=== PATIENT | female | born 1945 | race Caucasian/White ===

== ENCOUNTER 2017-12-16 17:17 | Inpatient (IN) | payer MEDICARE, OTHER ==
[~2017-12-16] VITALS: Ht 154.9 cm; Wt 106.0 kg
[~2017-12-16 17:17] MED LIST: ACIPHEX; ALBU4; ALBU90OI6 INH; ALBUTEROL; AMLO5 PO; ASMONEX; ASTHMANEX; B12; B6; BENTYL20 MG PO; BENZ100A PO; C; CALCAVITD PO; CALPHO600 PO; CELE200 PO; CETI10; CETI10 PO; CIPR500 PO; CLON.5; CLON.5 PO; CLON1 PO; CONEST.625; DOXA; DOXA1 PO; DOXA4; DOXA4 PO; DULOXETINE HCL20 MG PO; ERGO50000 PO; ESCI10 PO; EZET10 PO; Enulose10 GM/15 M PO; FAMO20; FLAX; FLAX PO; FLUC200 PO; FOSI10; FOSINOPRIL; HYDHCL25 PO; HYOS0.375T; Halcion0.25 MG PO; LAVAP17G PO; LETR2.5 PO; LEVFLO500 PO; LEVO750 PO; LEVSOD75 PO; LISI20 PO; METF500 PO; METO10; METO10 PO; METO50ER PO; METR500 PO; MULVITMINF PO; NAPR500 PO; ONDA8ODT; OXYACE5T PO; OXYACE7.5T PO; PANT20; PANT40 PO; PREMARIN; PROACE100 PO; Percocet 5-3251 EACH PO; RABE20; ROPI.25 PO; RXHYDACE PO; RXOXYACE PO; SIMV5; SPIR25 PO; TELM40 PO; TELMISARTAN-AM1 EACH PO; TOCO1000 PO; TRIAZOLAM; TRIAZOLAM PO; ZOCOR; ZYRTEC; [UNRECOGNIZED DRUG - OTHER]; [UNRECOGNIZED DRUG - OTHER]; [UNRECOGNIZED DRUG - OTHER]; [UNRECOGNIZED DRUG - OTHER]; [UNRECOGNIZED DRUG - OTHER]; [UNRECOGNIZED DRUG - OTHER]; [UNRECOGNIZED DRUG - OTHER] PO
[2017-12-16 18:53] LABS: BASOPHILS ABSOLUTE AUTO 0.03 K/mm3 (0.00-0.23); BASOPHILS PERCENT AUTO 1 % (0-2); EOSINOPHILS ABSOLUTE AUTO 0.14 K/mm3 (0.00-0.68); EOSINOPHILS PERCENT AUTO 3 % (0-6); Hematocrit 36.8 % (33.0-51.0); Hemoglobin 12.2 g/dL (11.5-16.0); IMMATURE GRAN PERCENT AUTO 2 % (0-1); LYMPHOCYTES PERCENT AUTO 13 % (21-46); MONOCYTES ABSOLUTE AUTO 0.74 K/mm3 (0.16-1.47); MONOCYTES PERCENT AUTO 16 % (4-13); Mean Corpuscular HGB 28.6 pg (26.0-34.0); Mean Corpuscular HGB Conc 33.2 g/dL (31.5-36.5); Mean Corpuscular Volume 86 fL (80-100); Mean Platelet Volume 8.2 fL (9.1-12.4); NEUTROPHILS ABSOLUTE AUTO 3.16 K/mm3 (1.96-9.15); NEUTROPHILS PERCENT AUTO 66 % (41-73); Platelet Count 205 K/mm3 (150-400); RDW Coefficient Variation 13.3 % (11.7-14.2); RDW Standard Deviation 41.4 fL (35.1-46.3); Red Blood Cell Count 4.27 M/mm3 (3.80-5.20); White Blood Cell Count 4.77 K/mm3 (4.00-11.30)
[2017-12-16 19:24] LABS: Alanine Aminotransfer (ALT/SGP 20 U/L (12-78); Albumin, Blood 3.8 g/dL (3.4-5.0); Alk Phos 89 U/L (50-136); Anion Gap 5 mmol/L (6-16); Aspartate Aminotrans (AST/SGOT 15 U/L (12-37); Bilirubin, Total 0.5 mg/dL (0.1-1.0); Blood Urea Nitrogen 8 mg/dL (8-24); Bun/Creatinine Ratio 11.8 (12.0-20.0); CO2, Blood 30 mmol/L (21-32); Calcium, Blood 9.1 mg/dL (8.5-10.1); Chloride, Blood 90 mmol/L (98-108); Creatinine, Blood 0.68 mg/dL (0.40-1.00); Globulin, Blood 3.7 g/dL (2.2-4.0); Glomerular Filtration Rate >60 (60-); Glucose, Blood 131 mg/dL (70-99); Potassium, Blood 4.4 mmol/L (3.5-5.5); Sodium, Blood 125 mmol/L (136-145); Total Protein, Blood 7.5 g/dL (6.4-8.2)
[2017-12-16 19:26] LABS: Troponin I <0.015 ng/mL (0.000-0.040)
[2017-12-17] MEDS ORDERED: ERGO400 PO (00:42)
[2017-12-17] MEDS ORDERED: BUSP15 PO (00:46)
[2017-12-17] MEDS ORDERED: MONT10T PO (00:47)
[2017-12-17 01:28] LABS: Influenza A Negative (NEGATIVE); Influenza B Positive (NEGATIVE)
[2017-12-17 05:17] LABS: BASOPHILS ABSOLUTE AUTO 0.02 K/mm3 (0.00-0.23); BASOPHILS PERCENT AUTO 0 % (0-2); EOSINOPHILS PERCENT AUTO 0 % (0-6); Hematocrit 34.8 % (33.0-51.0); Hemoglobin 11.7 g/dL (11.5-16.0); IMMATURE GRAN ABSOLUTE AUTO 0.16 K/mm3 (0.00-0.10); IMMATURE GRAN PERCENT AUTO 3 % (0-1); LYMPHOCYTES ABSOLUTE AUTO 0.29 K/mm3 (0.84-5.20); LYMPHOCYTES PERCENT AUTO 6 % (21-46); MONOCYTES ABSOLUTE AUTO 0.08 K/mm3 (0.16-1.47); MONOCYTES PERCENT AUTO 2 % (4-13); Mean Corpuscular HGB 28.7 pg (26.0-34.0); Mean Corpuscular HGB Conc 33.6 g/dL (31.5-36.5); Mean Corpuscular Volume 85 fL (80-100); Mean Platelet Volume 8.4 fL (9.1-12.4); NEUTROPHILS ABSOLUTE AUTO 4.21 K/mm3 (1.96-9.15); NEUTROPHILS PERCENT AUTO 88 % (41-73); Platelet Count 222 K/mm3 (150-400); RDW Coefficient Variation 13.2 % (11.7-14.2); RDW Standard Deviation 40.8 fL (35.1-46.3); Red Blood Cell Count 4.08 M/mm3 (3.80-5.20); White Blood Cell Count 4.76 K/mm3 (4.00-11.30)
[2017-12-17 05:50] LABS: Alanine Aminotransfer (ALT/SGP 22 U/L (12-78); Albumin, Blood 3.4 g/dL (3.4-5.0); Albumin/Globulin Ratio 0.8 (0.8-1.8); Alk Phos 79 U/L (50-136); Anion Gap 15 mmol/L (6-16); Aspartate Aminotrans (AST/SGOT 13 U/L (12-37); Bilirubin, Total 0.3 mg/dL (0.1-1.0); Blood Urea Nitrogen 8 mg/dL (8-24); Bun/Creatinine Ratio 11.5 (12.0-20.0); CO2, Blood 23 mmol/L (21-32); Calcium, Blood 8.5 mg/dL (8.5-10.1); Chloride, Blood 88 mmol/L (98-108); Creatinine, Blood 0.69 mg/dL (0.40-1.00); Glomerular Filtration Rate >60 (60-); Glucose, Blood 234 mg/dL (70-99); Potassium, Blood 4.2 mmol/L (3.5-5.5); Sodium, Blood 126 mmol/L (136-145); Total Protein, Blood 7.4 g/dL (6.4-8.2)
[2017-12-18 05:33] LABS: BASOPHILS ABSOLUTE AUTO 0.01 K/mm3 (0.00-0.23); BASOPHILS PERCENT AUTO 0 % (0-2); EOSINOPHILS PERCENT AUTO 0 % (0-6); Hematocrit 35.1 % (33.0-51.0); Hemoglobin 11.7 g/dL (11.5-16.0); IMMATURE GRAN ABSOLUTE AUTO 0.09 K/mm3 (0.00-0.10); IMMATURE GRAN PERCENT AUTO 1 % (0-1); LYMPHOCYTES ABSOLUTE AUTO 0.35 K/mm3 (0.84-5.20); LYMPHOCYTES PERCENT AUTO 5 % (21-46); MONOCYTES ABSOLUTE AUTO 0.39 K/mm3 (0.16-1.47); MONOCYTES PERCENT AUTO 6 % (4-13); Mean Corpuscular HGB 28.5 pg (26.0-34.0); Mean Corpuscular HGB Conc 33.3 g/dL (31.5-36.5); Mean Corpuscular Volume 85 fL (80-100); Mean Platelet Volume 8.2 fL (9.1-12.4); NEUTROPHILS ABSOLUTE AUTO 5.87 K/mm3 (1.96-9.15); NEUTROPHILS PERCENT AUTO 88 % (41-73); Platelet Count 233 K/mm3 (150-400); RDW Standard Deviation 40.2 fL (35.1-46.3); Red Blood Cell Count 4.11 M/mm3 (3.80-5.20); White Blood Cell Count 6.71 K/mm3 (4.00-11.30)
[2017-12-18 05:56] LABS: Alanine Aminotransfer (ALT/SGP 24 U/L (12-78); Albumin, Blood 3.6 g/dL (3.4-5.0); Alk Phos 73 U/L (50-136); Anion Gap 9 mmol/L (6-16); Aspartate Aminotrans (AST/SGOT 30 U/L (12-37); Bilirubin, Total 0.2 mg/dL (0.1-1.0); Blood Urea Nitrogen 15 mg/dL (8-24); CO2, Blood 29 mmol/L (21-32); Calcium, Blood 8.8 mg/dL (8.5-10.1); Chloride, Blood 86 mmol/L (98-108); Globulin, Blood 3.7 g/dL (2.2-4.0); Glomerular Filtration Rate >60 (60-); Glucose, Blood 206 mg/dL (70-99); Potassium, Blood 4.6 mmol/L (3.5-5.5); Sodium, Blood 124 mmol/L (136-145); Total Protein, Blood 7.3 g/dL (6.4-8.2)
[2017-12-19 08:57] LABS: Anion Gap 8 mmol/L (6-16); Blood Urea Nitrogen 15 mg/dL (8-24); Bun/Creatinine Ratio 26.1 (12.0-20.0); CO2, Blood 28 mmol/L (21-32); Calcium, Blood 8.4 mg/dL (8.5-10.1); Chloride, Blood 86 mmol/L (98-108); Creatinine, Blood 0.58 mg/dL (0.40-1.00); Glomerular Filtration Rate >60 (60-); Glucose, Blood 174 mg/dL (70-99); Potassium, Blood 4.7 mmol/L (3.5-5.5); Sodium, Blood 122 mmol/L (136-145)
[2017-12-19] MEDS ORDERED: BENZ100A PO (10:56)
[2017-12-19] MEDS ORDERED: RA COUGH-COLD237 ML PO (11:00)
[2017-12-19] MEDS ORDERED: OSEL75CA PO (11:05)
[2017-12-19] MEDS ORDERED: SPIR25 PO (11:05)
[2017-12-19] MEDS ORDERED: PRED20 PO (11:08)
[2017-12-19] MEDS ORDERED: SODCHL1 PO (11:08)
[2017-12-19] MEDS ORDERED: LEVFLO500 PO (11:08)
== END 2017-12-19 11:54 | disposition home or self-care (01) | DRG 202 ==
LOC: ER 17:17 → MEDS 20:35
PROVIDERS: Emergency Medicine; Internal Medicine
DX: J45.901 Unspecified asthma with (acute) exacerbation (principal); J96.01 Acute respiratory failure with hypoxia; E87.1 Hypo-osmolality and hyponatremia; J11.1 Influenza due to unidentified influenza virus with other respiratory manifestations; E11.9 Type 2 diabetes mellitus without complications; I10 Essential (primary) hypertension; E03.9 Hypothyroidism, unspecified; K21.9 Gastro-esophageal reflux disease without esophagitis; F41.9 Anxiety disorder, unspecified; F32.9 Major depressive disorder, single episode, unspecified; E66.9 Obesity, unspecified; Z85.3 Personal history of malignant neoplasm of breast; Z79.84 Long term (current) use of oral hypoglycemic drugs; Z79.899 Other long term (current) drug therapy; Z91.048 Other nonmedicinal substance allergy status; Z88.5 Allergy status to narcotic agent; Z88.8 Allergy status to other drugs, medicaments and biological substances
CPT/HCPCS: 36415; 71046; 80048; 80053; 82947; 84484; 85025; 87070; 87205; 87804; 93005; 93010; 94640; 94644; 94760; 94762; 96374; 99285; J1650; J1956; J2920; J2930; J7030

== ENCOUNTER 2018-05-31 14:01 | Day surgery (SDC) | payer MEDICARE, OTHER ==
[~2018-05-31 14:01] MED LIST changes: +BUSP15 PO; +ERGO400 PO; +MONT10T PO; +OSEL75CA PO; +PRED20 PO; +RA COUGH-COLD237 ML PO; +SODCHL1 PO
== END 2018-05-31 22:45 | disposition home or self-care (01) ==
LOC: RAD 14:01
DX: M25.811 Other specified joint disorders, right shoulder (principal); M75.121 Complete rotator cuff tear or rupture of right shoulder, not specified as traumatic
CPT/HCPCS: 20610; 23350; 73201; 77002; Q9967

== ENCOUNTER 2019-07-15 11:27 | Day surgery (SDC) | payer MEDICARE, OTHER ==
[~2019-07-15] VITALS: Ht 185.4 cm; Wt 100.1 kg
[~2019-07-15 11:27] MED LIST changes: +ALBU90OI INH; +Advair Hfa 115-12 GM INH; +Cardura2 MG PO; +ELIQUIS5 MG PO; +ESCI20 PO; +Ferrous Sulfat325 M2 PO; +HYDPAM50 PO; +Lopressor 25 mg25 MG PO; +MAGNESIUM OXID500 MG PO; +Metformin HCl1000 MG PO; +Ropinirole HCl2 MG PO; +Singulair10 MG PO; +TORSE20 PO; +TRAZ50 PO; +ZYRTEC10 M1 PO
--- NOTE | 2019-07-15 13:10 | NUR ---
07/15/19 1310 Raven Castaneda 1 IVMISS IN RH BY FRANCISCO JAVIER VALVE 1 IV MISS IN RFA BY FRANCISCO JAVIER 1 GOOD IV IN RH BY FRANCISCO JAVIER PT TOW
--- NOTE | 2019-07-15 15:52 | NUR ---
07/15/19 1552 Sherie Ramachandran S IV SITE INFILTRATED IN RIGHT WRIST AREA JUST. OBSERVED THAT AN IV ATTEMPT WAS RIGHT ABOVE THE IV SITE IN WHAT IS OBSERVED TO BE IN THE SAME VEIN SO SITE WAS INFILTRATING IN ATTEMPT SITE. IV DISCONTINUED, PRESSURE HELD & IV RESTARTED IN RIGHT INNER FOREARM. ARM BOARD WAS ALSO PLACED TO HELP IV RUN BETTER. PT. DID WAKE UP VERBALIZING THAT HER OLD IV SITE WAS STARTING TO BECOME SORE. PT. INSTRUCTED THAT HER IV HAD INFILTRATED & ANOTHER ONE HAD BEEN STARTED. PT. WAS ALSO INSTRUCTED THAT IF SITE WAS BOTHERSOME THAT SHE COULD PUT A WARM PACK ON IT.
== END 2019-07-15 15:40 | disposition home or self-care (01) ==
LOC: ORSCSDS 11:27
PROVIDERS: Internal Medicine Gastroenterology
PROC: 0DJD8ZZ Inspection of Lower Intestinal Tract, Via Natural or Artificial Opening Endoscopic (ICD-10-PCS; principal; 2019-07-15 13:00)
PROC: 0DJ08ZZ Inspection of Upper Intestinal Tract, Via Natural or Artificial Opening Endoscopic (ICD-10-PCS; principal; 2019-07-15 13:00)
DX: D50.9 Iron deficiency anemia, unspecified (principal); K57.30 Diverticulosis of large intestine without perforation or abscess without bleeding; K64.8 Other hemorrhoids; Z86.010 Personal history of colon polyps; I10 Essential (primary) hypertension; E11.9 Type 2 diabetes mellitus without complications; K21.9 Gastro-esophageal reflux disease without esophagitis; I48.91 Unspecified atrial fibrillation; Z79.01 Long term (current) use of anticoagulants; E78.5 Hyperlipidemia, unspecified; J45.909 Unspecified asthma, uncomplicated; Z79.899 Other long term (current) drug therapy
CPT/HCPCS: 82947; J2001; J2250; J2704; J7120

== ENCOUNTER → 2020-03-15 | Outpatient (CLI) | payer MEDICARE, OTHER ==
[2020-03-15 14:02] LABS: BASOPHILS ABSOLUTE AUTO 0.05 K/mm3 (0.00-0.23); BASOPHILS PERCENT AUTO 1 % (0-2); EOSINOPHILS ABSOLUTE AUTO 0.24 K/mm3 (0.00-0.68); EOSINOPHILS PERCENT AUTO 4 % (0-6); Hematocrit 29.5 % (33.0-51.0); Hemoglobin 9.9 g/dL (11.5-16.0); IMMATURE GRAN ABSOLUTE AUTO 0.03 K/mm3 (0.00-0.10); IMMATURE GRAN PERCENT AUTO 1 % (0-1); LYMPHOCYTES ABSOLUTE AUTO 1.01 K/mm3 (0.84-5.20); LYMPHOCYTES PERCENT AUTO 16 % (21-46); MONOCYTES ABSOLUTE AUTO 0.64 K/mm3 (0.16-1.47); MONOCYTES PERCENT AUTO 10 % (4-13); Mean Corpuscular HGB 29.5 pg (26.0-34.0); Mean Corpuscular HGB Conc 33.6 g/dL (31.5-36.5); Mean Corpuscular Volume 88 fL (80-100); Mean Platelet Volume 8.3 fL (9.1-12.4); NEUTROPHILS ABSOLUTE AUTO 4.55 K/mm3 (1.96-9.15); NEUTROPHILS PERCENT AUTO 70 % (41-73); Platelet Count 203 K/mm3 (150-400); RDW Coefficient Variation 13.2 % (11.7-14.2); Red Blood Cell Count 3.36 M/mm3 (3.80-5.20); White Blood Cell Count 6.52 K/mm3 (4.00-11.30)
[2020-03-15 14:21] LABS: Alanine Aminotransfer (ALT/SGP 13 U/L (12-78); Albumin, Blood 3.8 g/dL (3.4-5.0); Albumin/Globulin Ratio 1.1 (0.8-1.8); Alk Phos 72 U/L (40-126); Anion Gap 3 mmol/L (6-16); Aspartate Aminotrans (AST/SGOT 12 U/L (12-37); Bilirubin, Total 0.4 mg/dL (0.1-1.0); Blood Urea Nitrogen 13 mg/dL (8-24); Bun/Creatinine Ratio 13.1 (12.0-20.0); CO2, Blood 38 mmol/L (21-32); Calcium, Blood 8.4 mg/dL (8.5-10.1); Chloride, Blood 85 mmol/L (98-108); Creatinine, Blood 0.99 mg/dL (0.40-1.00); Globulin, Blood 3.4 g/dL (2.2-4.0); Glomerular Filtration Rate 55 (60-); Glucose, Blood 118 mg/dL (70-99); Potassium, Blood 3.3 mmol/L (3.5-5.5); Sodium, Blood 126 mmol/L (136-145); Thyroid Stimulating Hormone 1.083 uIU/mL (0.360-4.800); Total Protein, Blood 7.2 g/dL (6.4-8.2); Troponin I <0.017 ng/mL (0.000-0.040)
== END | disposition home or self-care (01) ==
LOC: LAB SHORT 13:46 → LAB EV 13:46
PROVIDERS: Physician Assistant
DX: E03.9 Hypothyroidism, unspecified (principal); R06.00 Dyspnea, unspecified; Z20.828 Contact with and (suspected) exposure to other viral communicable diseases
CPT/HCPCS: 80053; 83880; 84443; 84484; 85025; U0003

== ENCOUNTER 2021-03-19 05:30 | Day surgery (SDC) | payer MEDICARE, OTHER ==
[~2021-03-19] VITALS: Ht 157.5 cm; Wt 93.0 kg
[2021-03-19] MEDS ORDERED: K-Dur 20 meq T20 MEQ PO (08:07)
--- NOTE | 2021-03-19 10:17 | NUR ---
11CC AIR REMOVED FROM R WRIST TR BAND. -BLEEDING OR SWELLING.
--- NOTE | 2021-03-19 10:18 | NUR ---
PT UP TO BATHROOM /S DIFFICULTY.
--- NOTE | 2021-03-19 11:14 | NUR ---
PT DRESSED, AMB TO BTR 3X SINCE CATH, TR BAND REMOVED, DRESSING/SPLINT TO R WRIST, IV DC'D INTACT. PT FAMILY CALLED AND WILL BE DC'D BY WC SHORTLY.
== END 2021-03-19 11:30 | disposition home or self-care (01) ==
LOC: MHTC 05:30
DX: I35.0 Nonrheumatic aortic (valve) stenosis (principal); I25.10 Atherosclerotic heart disease of native coronary artery without angina pectoris; I48.19 Other persistent atrial fibrillation; E11.9 Type 2 diabetes mellitus without complications; J45.909 Unspecified asthma, uncomplicated; E03.9 Hypothyroidism, unspecified; E66.01 Morbid (severe) obesity due to excess calories; E78.00 Pure hypercholesterolemia, unspecified; I11.0 Hypertensive heart disease with heart failure; I50.9 Heart failure, unspecified; Z88.5 Allergy status to narcotic agent; Z88.1 Allergy status to other antibiotic agents; Z88.0 Allergy status to penicillin; Z88.8 Allergy status to other drugs, medicaments and biological substances; Z79.01 Long term (current) use of anticoagulants; Z79.84 Long term (current) use of oral hypoglycemic drugs; Z68.37 Body mass index [BMI] 37.0-37.9, adult
CPT/HCPCS: 93454; 99152; C1769; C1894; J1644; J2250; J3010; J7030; Q9967

== ENCOUNTER 2021-06-02 09:08 | Emergency (ER) | payer MEDICARE, OTHER ==
[~2021-06-02] VITALS: Ht 157.5 cm; Wt 97.5 kg
[~2021-06-02 09:08] MED LIST changes: +POTCHL20ER PO
[2021-06-02] MEDS ORDERED: ELIQUIS5 M3 PO (09:27)
[2021-06-02] MEDS ORDERED: HYDROCODONE-AC1 EA14 PO (09:27)
[2021-06-02] MEDS ORDERED: PANTOPRAZOLE SO40 M2 PO (09:27)
[2021-06-02] MEDS ORDERED: TRAZ50 PO (09:29)
[2021-06-02] MEDS ORDERED: Cetirizine HCl10 MG PO (09:29)
[2021-06-02] MEDS ORDERED: METFORMIN HCL500 M2 PO (09:30)
[2021-06-02] MEDS ORDERED: DOXAZOSIN MESYLA4 M2 PO (09:31)
[2021-06-02] MEDS ORDERED: ALENDRONATE SOD35 MG PO (09:31)
[2021-06-02 09:50] LABS: BASOPHILS ABSOLUTE AUTO 0.04 K/mm3 (0.00-0.23); BASOPHILS PERCENT AUTO 1 % (0-2); EOSINOPHILS ABSOLUTE AUTO 0.23 K/mm3 (0.00-0.68); EOSINOPHILS PERCENT AUTO 5 % (0-6); Hematocrit 35.6 % (33.0-51.0); Hemoglobin 11.8 g/dL (11.5-16.0); IMMATURE GRAN ABSOLUTE AUTO 0.01 K/mm3 (0.00-0.10); IMMATURE GRAN PERCENT AUTO 0 % (0-1); LYMPHOCYTES ABSOLUTE AUTO 0.76 K/mm3 (0.84-5.20); LYMPHOCYTES PERCENT AUTO 16 % (21-46); MONOCYTES ABSOLUTE AUTO 0.57 K/mm3 (0.16-1.47); MONOCYTES PERCENT AUTO 12 % (4-13); Mean Corpuscular HGB 29.4 pg (26.0-34.0); Mean Corpuscular HGB Conc 33.1 g/dL (31.5-36.5); Mean Corpuscular Volume 89 fL (80-100); Mean Platelet Volume 8.9 fL (9.1-12.4); NEUTROPHILS ABSOLUTE AUTO 3.16 K/mm3 (1.96-9.15); NEUTROPHILS PERCENT AUTO 66 % (41-73); Platelet Count 220 K/mm3 (150-400); RDW Coefficient Variation 14.7 % (11.7-14.2); RDW Standard Deviation 48.1 fL (35.1-46.3); Red Blood Cell Count 4.02 M/mm3 (3.80-5.20); White Blood Cell Count 4.77 K/mm3 (4.00-11.30)
[2021-06-02 10:26] LABS: Anion Gap 4 mmol/L (6-16); Blood Urea Nitrogen 13 mg/dL (8-24); Bun/Creatinine Ratio 15.6 (12.0-20.0); CO2, Blood 31 mmol/L (21-32); Calcium, Blood 9.1 mg/dL (8.5-10.1); Chloride, Blood 90 mmol/L (98-108); Creatinine, Blood 0.84 mg/dL (0.40-1.00); Free Thyroxine 1.24 ng/dL (0.70-1.60); Glomerular Filtration Rate >60 (60-); Glucose, Blood 124 mg/dL (70-99); Magnesium, Blood 2.2 mg/dL (1.6-2.4); Sodium, Blood 125 mmol/L (136-145); Triiodothyronine, Free 1.51 pg/mL (2.18-3.98)
[2021-06-02] MEDS ORDERED: TORSE20 PO (11:03)
[2021-06-02 11:10] LABS: SARS-Cov-2 (COVID-19) PCR, MMC NEGATIVE (NEGATIVE)
== END 2021-06-02 11:56 | disposition home or self-care (01) ==
LOC: ER 09:08
PROVIDERS: Student in an Organized Health Care Education/Training Program
DX: I35.0 Nonrheumatic aortic (valve) stenosis (principal); I11.9 Hypertensive heart disease without heart failure; E87.1 Hypo-osmolality and hyponatremia; J81.1 Chronic pulmonary edema; E11.9 Type 2 diabetes mellitus without complications; E03.9 Hypothyroidism, unspecified; J45.909 Unspecified asthma, uncomplicated; I48.91 Unspecified atrial fibrillation; Z20.822 Contact with and (suspected) exposure to COVID-19; Z88.8 Allergy status to other drugs, medicaments and biological substances; Z91.048 Other nonmedicinal substance allergy status; Z88.5 Allergy status to narcotic agent; Z88.1 Allergy status to other antibiotic agents; Z79.899 Other long term (current) drug therapy; Z79.01 Long term (current) use of anticoagulants; Z79.84 Long term (current) use of oral hypoglycemic drugs
CPT/HCPCS: 36415; 71045; 80048; 83605; 83735; 83880; 84439; 84443; 84481; 84484; 85025; 93005; 93010; 99284-25; A9270; U0004

== ENCOUNTER 2021-07-07 14:36 | Emergency (ER) | payer MEDICARE, OTHER ==
[~2021-07-07] VITALS: Ht 157.5 cm; Wt 101.2 kg
[~2021-07-07 14:36] MED LIST changes: +ALENDRONATE SOD35 MG PO; +Cetirizine HCl10 MG PO; +DOXAZOSIN MESYLA4 M2 PO; +ELIQUIS5 M3 PO; +HYDROCODONE-AC1 EA14 PO; +METFORMIN HCL500 M2 PO; +PANTOPRAZOLE SO40 M2 PO
[2021-07-07] MEDS ORDERED: Percocet 5-3251 EACH PO (16:38)
== END 2021-07-07 17:07 | disposition home or self-care (01) ==
LOC: ER 14:36
DX: M25.512 Pain in left shoulder (principal); I10 Essential (primary) hypertension; E11.9 Type 2 diabetes mellitus without complications; E03.9 Hypothyroidism, unspecified; Z79.899 Other long term (current) drug therapy
CPT/HCPCS: 73030; 93005; 93010; 99284-25; A9270